=== PATIENT | female | born 1995 | race American Indian/Alaskan Native ===

== ENCOUNTER 2017-10-20 00:05 | Emergency (ER) | payer MEDICAID, OTHER ==
[2017-10-20 00:15] VITALS: PULSE 84; RESP 20
--- NOTE | 2017-10-20 00:52 | C.PDOC ---
History Of Present Illness 22 yo female come in for evaluation of nausea for past week. Pt sts, "today, felt worse, almost vomited. developed some headache, back pain. Otherwise, pt denies change in appetite, recent illness, fever, chills, sore throat, cough, CP , SOB, dyspnea, wheezing, vomiting, diarrhea, UTi sx. LNMP -2. Ambulate to ED for evaluation, not in any apparent distress. Time Seen by Provider: 10/20/17 00:42 Chief Complaint (Nursing): Abdominal Pain History Per: Patient Past Medical History Reviewed: Historical Data, Nursing Documentation, Vital Signs Vital Signs: Last Vital Signs Temp 98 F 10/20/17 00:11 Pulse 84 10/20/17 00:11 Resp 20 10/20/17 00:11 BP 103/47 L 10/20/17 00:11 Pulse Ox 100 10/20/17 00:53 - Medical History PMH: No Chronic Diseases Surgical History: No Surg Hx Family History: States: No Known Family Hx - Social History Hx Alcohol Use: No Hx Substance Use: No - Immunization History Hx Tetanus Toxoid Vaccination: No Hx Pneumococcal Vaccination: No Review Of Systems Except As Marked, All Systems Reviewed And Found Negative. Constitutional: Positive for: Chills. Negative for: Fever ENT: Negative for: Ear Discharge, Nose Discharge, Nose Congestion, Throat Pain, Throat Swelling Cardiovascular: Negative for: Chest Pain Respiratory: Negative for: Cough, Shortness of Breath, Wheezing Gastrointestinal: Positive for: Nausea, Abdominal Pain. Negative for: Vomiting , Diarrhea, Melena, Hematochezia, Hematemesis Genitourinary: Negative for: Dysuria, Frequency Musculoskeletal: Positive for: Back Pain. Negative for: Neck Pain Skin: Negative for: Rash Neurological: Positive for: Headache. Negative for: Weakness, Numbness, Altered Mental Status, Dizziness Physical Exam - Physical Exam Appears: Well, Non-toxic, No Acute Distress Skin: Normal Color, Warm, Dry, No Rash Head: Normacephalic Eye(s): bilateral: PERRL Nose: No Flaring, No Discharge Oral Mucosa: Moist, No Drooling Throat: No Erythema Neck: Trachea Midline, Supple Cardiovascular: Rhythm Regular Respiratory: No Decreased Breath Sounds, No Accessory Muscle Use, No Stridor, No Wheezing Gastrointestinal/Abdominal: Soft, Tenderness (mild epigastric), No Distention, No Guarding, No Rebound Back: No CVA Tenderness Extremity: Normal ROM, No Deformity, No Swelling Neurological/Psych: Oriented x3, Normal Speech ED Course And Treatment - Laboratory Results Result Diagrams: 10/20/17 01:32 18 01:32 Urine POC: Negative O2 Sat by Pulse Oximetry: 100 Pulse Ox Interpretation: Normal - CT Scan/US CT abd/pelvis Other Rad Studies (CT/US): Radiology Report Reviewed CT/US Interpretation: Pt ois allergic to shelfis. Study dry, no contrast. EXAM : CT Abdomen and Pelvis Without Intravenous Contrast. CLINICAL HISTORY: 22 years old, female; Pain; Abdominal pain; Additional info: Llq pain. TECHNIQUE: Axial computed tomography images of the abdomen and pelvis without intravenous contrast. All CT. scans at this facility use one or more dose reduction techniques, viz.: automated exposure control;. ma/kV adjustment per patient size (including targeted exams where dose is matched to indication; i.e. head); or iterative reconstruction technique. Coronal and sagittal reformatted images were created and reviewed. COMPARISON: No relevant prior studies available. FINDINGS: Lower thorax: No acute findings. ABDOMEN: Liver : Unremarkable. Gallbladder and bile ducts: No calcified stones. No ductal dilation. Pancreas: Unremarkable. No ductal dilation. Spleen: No splenomegaly. Adrenals: No mass. Kidneys and ureters: No renal calculi. No hydronephrosis. Stomach and bowel: Apparent mild mural thickening vs underdistention of distal rectum. No. obstruction. Appendix: Normal caliber. No definite inflammation. PELVIS: Bladder: Unremarkable. No stones. Reproductive: Suboptimal delineation of uterus and adnexa. ABDOMEN and PELVIS: Intraperitoneal space: Small free fluid within pelvis. No free air. Bones/ joints: No acute fracture. Soft tissues: Unremarkable. Vasculature: Unremarkable. No aneurysm. Lymph nodes: No pathologically enlarged lymph nodes. IMPRESSION: 1. Small pelvic ascites with suboptimal delineation of uterus/adnexa. Suggest ultrasound. 2. Possible mild proctitis versus underdistention. Clinical correlation is needed. 3. Incidental/non-acute findings are described above. Thank you for allowing us to participate in the care of your patient Progress Note: Pt was OBS in Ed for 3 hours and remained stable. On re-eval, pt is afberile, hemodynamicaly stable. Non-toxic. Tolerate PO well in ED. PulseEOx 100% RA. ENT: no acute findings. neck: SUpple, (-) meningeal sign, (- ) JVD. Lungs: CTA B/L, BS equal B/L. CVS: (+)S1S2, reg. Abd: benign, (-) guarding, (-) rebound. back: (-) CVA tenderness. Blood owrk review, low HB noted. Pt admits, has hx of anemia. Otherwise, diagnostics appeafs without acute findings. UA- normal study. Imaging review and discussed with pt, recommend on outpt bases, F/U outpt with [facility] for Pelvic US, ottherwise, no acute findings noted. Pt has cliunical findings c/w nausea, epigastric pain, low Hb, hx of anemia. Pt advised. ref. to F/u with PMD, GI, Hematlogy and [facility] in 2-3 days for re-eavl. return to ED if any worsening or new changes. Disposition Counseled Patient/Family Regarding: Studies Performed, Diagnosis, Need For Followup, Rx Given - Disposition Referrals: [facility] at [facility] [Outside] Disposition: HOME/ ROUTINE Disposition Time: 03:42 Condition: STABLE Additional Instructions: ENCOURAGE FLUIDS DIET RESTRICTION FOR 1 WEEK, AVOID FAT, GREASY FOOD ENCOURAGE FLUIDS TAKE MEDICATION PRESCRIBED FOLLOW UP WITH PMD, [facility] IN 1-2 DAYS FOR RE-EVALUATION. RETURN TO ED IF ANY WORSENING OR NEW CHANGES. Prescriptions: Ondansetron ODT [Zofran ODT] 1 odt PO BID PRN #6 odt PRN Reason: Nausea/Vomiting Pantoprazole Sodium [Protonix] 20 mg PO BID #20 tablet. Instructions: Anemia Caused by Low Iron, Nausea and Vomiting, Adult, Dyspepsia (DC) Forms: [employer] (Turkish) - Clinical Impression Clinical Impression: Nausea, Epigastric pain, Anemia
[2017-10-20 00:56] LABS: HCG,QUALITATIVE URINE NEGATIVE (NEGATIVE); SQUAMOUS EPITHIAL 8 /hpf (0-5); URINE BACTERIA RARE (<OCC); URINE BILIRUBIN NEGATIVE (NEGATIVE); URINE BLOOD NEGATIVE (NEGATIVE); URINE CLARITY Hazy (Clear); URINE COLOR Yellow (YELLOW); URINE GLUCOSE (UA) NORMAL (Normal); URINE NITRATE NEGATIVE (NEGATIVE); URINE PROTEIN NEGATIVE (NEGATIVE)
[2017-10-20 00:57] LABS: URINE LEUKOCYTE ESTERASE NEGATIVE Leu/uL (Negative)
[2017-10-20] MEDS ORDERED: Sodium Chloride 0.9% 1,000 ML IV ONE (01:20)
[2017-10-20] MEDS ORDERED: Sodium Chloride 0.9% 1,000 ML ONE (01:27)
[2017-10-20 01:35] LABS: BASO % 0.5 % (0.0-2.0); EOS # 0.1 K/uL (0.0-0.7); EOS % 0.6 % (0.0-4.0); HEMOGLOBIN 9.1 g/dL (11.0-16.0); LYMPH # 2.4 K/uL (1.0-4.3); LYMPH % 29.2 % (20.0-40.0); MEAN CELL VOLUME 77.7 fL (81.0-99.0); MEAN CORPUSCULAR HEMOGLOBIN 25.5 pg (27.0-31.0); MEAN CORPUSCULAR HGB CONC 32.8 g/dL (33.0-37.0); MEAN PLATELET VOLUME 7.8 fL (7.2-11.7); MONO # 0.7 K/uL (0.0-0.8); NEUT % 60.7 % (50.0-75.0); RBC 3.59 Mil/uL (3.80-5.20); RED CELL DISTRIBUTION WIDTH 16.7 % (11.5-14.5); WHITE BLOOD COUNT 8.2 K/uL (4.8-10.8)
[2017-10-20 01:51] LABS: ALB/GLOB RATIO 1.2 (1.0-2.1); ALBUMIN 3.9 g/dL (3.5-5.0); ALT/SGPT 22 U/L (9-52); AST/SGOT 19 U/L (14-36); BLOOD UREA NITROGEN 12 mg/dL (7-17); CALCIUM 8.9 mg/dl (8.6-10.4); GFR AFRICAN-AMERICAN > 60; GFR NON-AFRICAN AMERICAN > 60; LIPASE 133 U/L (23-300)
--- NOTE | 2017-10-20 03:22 | CT ---
EXAM: CT Abdomen and Pelvis Without Intravenous Contrast CLINICAL HISTORY: 22 years old, female; Pain; Abdominal pain; Additional info: Llq pain TECHNIQUE: Axial computed tomography images of the abdomen and pelvis without intravenous contrast. All CT scans at this facility use one or more dose reduction techniques, viz.: automated exposure control; ma/kV adjustment per patient size (including targeted exams where dose is matched to indication; i.e. head); or iterative reconstruction technique. Coronal and sagittal reformatted images were created and reviewed. COMPARISON: No relevant prior studies available. FINDINGS: Lower thorax: No acute findings. ABDOMEN: Liver: Unremarkable. Gallbladder and bile ducts: No calcified stones. No ductal dilation. Pancreas: Unremarkable. No ductal dilation. Spleen: No splenomegaly. Adrenals: No mass. Kidneys and ureters: No renal calculi. No hydronephrosis. Stomach and bowel: Apparent mild mural thickening vs underdistention of distal rectum. No obstruction. Appendix: Normal caliber. No definite inflammation. PELVIS: Bladder: Unremarkable. No stones. Reproductive: Suboptimal delineation of uterus and adnexa. ABDOMEN and PELVIS: Intraperitoneal space: Small free fluid within pelvis. No free air. Bones/joints: No acute fracture. Soft tissues: Unremarkable. Vasculature: Unremarkable. No aneurysm. Lymph nodes: No pathologically enlarged lymph nodes. IMPRESSION: 1. Small pelvic ascites with suboptimal delineation of uterus/adnexa. Suggest ultrasound. 2. Possible mild proctitis versus underdistention. Clinical correlation is needed. 3. Incidental/non-acute findings are described above.
[2017-10-20 04:42] VITALS: BP 132/70; TEMP 97.1; O2SAT 98
== END 2017-10-20 04:41 | disposition home or self-care (01) ==
LOC: C.ER 00:05
DX: R10.13 Epigastric pain (principal); R11.0 Nausea; D64.9 Anemia, unspecified
CPT/HCPCS: 74176; 80053; 81001; 83690; 84703; 85025; 96361; 96374; 99285; J1885; J7040

== ENCOUNTER 2017-10-24 13:07 | Emergency (ER) | payer MEDICAID ==
[2017-10-24] MEDS ORDERED: Sodium Chloride 0.9% 1,000 ML IV ONE (13:47)
--- NOTE | 2017-10-24 13:50 | C.PDOC ---
History Of Present Illness 22 yo female w/PMHx of anemia come in for evaluation of fever, bodyaches, malaise, decrease appetite, sore throat, headache gradually developed for past few days. Pt admits, was seen here 4 days ago due to abd. pain. Otherwise, pt denies lethargy, severe headache, drooling, dysphagia, dyspnea, CP, SOB, wheezing, cough, abd. pain, diarrhea, back pain, UTI sx. Ambulate to ED for evaluation, appears in pain. HPI: Influenza Time Seen by Provider: 10/24/17 13:35 Chief Complaint: Flu-like Symptoms History Per: Patient Past Medical History Reviewed: Historical Data, Nursing Documentation, Vital Signs Vital Signs: Last Vital Signs Temp 102 F H 10/24/17 13:30 Pulse 114 H 10/24/17 13:30 Resp 20 10/24/17 13:30 BP 94/60 L 10/24/17 13:30 Pulse Ox 98 10/24/17 13:30 - Medical History PMH: Anemia Family History: States: No Known Family Hx - Social History Hx Alcohol Use: No Hx Substance Use: No - Immunization History Hx Tetanus Toxoid Vaccination: No Hx Pneumococcal Vaccination: No Review Of Systems Except As Marked, All Systems Reviewed And Found Negative. Constitutional: Positive for: Fever, Chills, Malaise Eyes: Negative for: Vision Change ENT: Positive for: Nose Discharge, Nose Congestion, Throat Pain, Throat Swelling. Negative for: Ear Discharge Cardiovascular: Negative for: Chest Pain Respiratory: Negative for: Cough, Shortness of Breath, Wheezing Gastrointestinal: Positive for: Nausea. Negative for: Vomiting, Abdominal Pain , Diarrhea Genitourinary: Negative for: Dysuria Musculoskeletal: Negative for: Neck Pain Skin: Negative for: Rash Neurological: Positive for: Headache. Negative for: Altered Mental Status, Dizziness Physical Exam - Physical Exam Appears: Well, No Acute Distress Skin: Normal Color, Warm, Dry, No Rash Head: Normacephalic Eye(s): bilateral: PERRL Ear(s): Bilateral: Normal Nose: No Flaring, No Discharge Oral Mucosa: Moist, No Drooling Throat: Erythema (mod), Exudate (Left tonsilar), No Drooling Neck: Trachea Midline, Supple, Other ((-) meningeal sign) Cardiovascular: Rhythm Regular, No Murmur, No JVD Respiratory: No Decreased Breath Sounds, No Accessory Muscle Use, No Stridor, No Wheezing Gastrointestinal/Abdominal: Soft, No Tenderness, No Distention, No Guarding Back: No CVA Tenderness Extremity: Normal ROM, No Deformity, No Swelling Neurological/Psych: Oriented x3, Normal Speech - Laboratory Results Result Diagrams: 10/24/17 14:17 10/24/17 14:17 Urine POC: Negative - ECG O2 Sat by Pulse Oximetry: 98 Pulse Ox Interpretation: Normal - Other Rad CXR X-Ray: Read By Radiologist X-Ray Interpretation: no acute findings - Progress ED Course And Treament: Pt was OBS in ED for 2.5 hours and reports moderate improvement in sx. Pt sts, " Im hungry now, want something to eat". On re-eval, pt fever improved, hemodynamicaly stable. NOn-toxic. Tolerate Po well in ED. PuslEOx n98% RA neck: SUpple, (-) meningeal sign. ENT: exam c/w acute pharyngitis. Uvula midline, no edema. Lungs: CTA B/L, BS equal B/L. ABd: benign, (-) guarding, (-) rebound. Back: (-) CVA tenderness. Neurologicaly intact. Blood work review, appears similar to previous visit from 10/20/17, no new acute changes. CXR- normal study. results review and discussed with pt. Pt has clinical findings c/w acute pharyngitis r/o Influenza-like illness. Pt advised. ref. to f/u with PMD in 2-3 days for re-eval. Return to ED if any worsening or new changes. Disposition Counseled Patient/Family Regarding: Studies Performed, Diagnosis, Need For Followup, Rx Given - Disposition Referrals: [facility] [Outside] Disposition: HOME/ ROUTINE Disposition Time: 15:46 Condition: STABLE Additional Instructions: Encourage fluids Take medication as prescribed Bedrest for 2 days Follow up with PMD in 2-3 days for re-evaluation. Return to ED if any worsening or new changes. Prescriptions: Amoxicillin/Clavulanate [Augmentin 875 MG-125 MG] 1 tab PO BID #14 tab Ibuprofen [Motrin Tab] 400 mg PO Q6 #14 tab Oseltamivir Phosphate [Tamiflu] 75 mg PO BID #10 capsule Instructions: Flu, Adult (DC), Sore Throat, Adult (DC) Forms: [employer] (Swazi) - Clinical Impression Clinical Impression: Influenza-like illness, Pharyngitis
[2017-10-24 14:20] LABS: BASO % 0.2 % (0.0-2.0); HEMOGLOBIN 9.8 g/dL (11.0-16.0); LYMPH # 0.6 K/uL (1.0-4.3); LYMPH % 5.2 % (20.0-40.0); MEAN CELL VOLUME 77.9 fL (81.0-99.0); MEAN CORPUSCULAR HEMOGLOBIN 25.1 pg (27.0-31.0); MEAN CORPUSCULAR HGB CONC 32.3 g/dL (33.0-37.0); MEAN PLATELET VOLUME 7.1 fL (7.2-11.7); MONO # 1.1 K/uL (0.0-0.8); MONO % 9.4 % (0.0-10.0); NEUT % 85.2 % (50.0-75.0); PLATELET COUNT 280 K/uL (130-400); RBC 3.89 Mil/uL (3.80-5.20); RED CELL DISTRIBUTION WIDTH 16.8 % (11.5-14.5); WHITE BLOOD COUNT 11.7 K/uL (4.8-10.8)
[2017-10-24] MEDS ORDERED: Sodium Chloride 0.9% 1,000 ML ONE (14:24)
--- NOTE | 2017-10-24 14:30 | RAD ---
HISTORY: Shortness of breath. COMPARISON: No prior. TECHNIQUE: Chest PA and lateral FINDINGS: LUNGS: No active pulmonary disease. PLEURA: No significant pleural effusion identified. No pneumothorax apparent. CARDIOVASCULAR: Normal. OSSEOUS STRUCTURES: No significant abnormalities. VISUALIZED UPPER ABDOMEN: Normal. OTHER FINDINGS: None. IMPRESSION: No active disease.
[2017-10-24 14:34] LABS: BLOOD UREA NITROGEN 12 mg/dL (7-17); CALCIUM 9.1 mg/dl (8.6-10.4); GFR AFRICAN-AMERICAN > 60; GFR NON-AFRICAN AMERICAN > 60
[2017-10-24 14:44] LABS: HCG,QUALITATIVE URINE NEGATIVE (NEGATIVE)
[2017-10-24 14:54] LABS: SQUAMOUS EPITHIAL 10 /hpf (0-5); URINE BACTERIA RARE (<OCC); URINE BILIRUBIN NEGATIVE (NEGATIVE); URINE BLOOD NEGATIVE (NEGATIVE); URINE CLARITY Hazy (Clear); URINE COLOR Yellow (YELLOW); URINE GLUCOSE (UA) NORMAL (Normal); URINE LEUKOCYTE ESTERASE 2+ Leu/uL (Negative); URINE NITRATE NEGATIVE (NEGATIVE); URINE PROTEIN NEGATIVE (NEGATIVE)
[2017-10-24 15:12] VITALS: BP 92/56; PULSE 71; RESP 18; TEMP 99.8
[2017-10-24 15:17] LABS: ANISOCYTOSIS SLIGHT; HYPOCHROMIC SLIGHT; LYMPHOCYTE 5 % (20-40); MICROCYTOSIS SLIGHT; MONOCYTE 11 % (0-10); NEUTROPHIL 84 % (50-75); PLATELET ESTIMATE NORMAL (NORMAL); POIKILOCYTOSIS SLIGHT; TOTAL CELLS COUNTED 100
[2017-10-24 15:18] LABS: TARGET CELLS SLIGHT
[2017-10-24 15:36] VITALS: O2SAT 98
[2017-10-24] MEDS ORDERED: Amoxicillin-Clav 875-125 mg Tab PO STA (15:46)
[2017-10-24] MEDS ORDERED: Amoxicillin-Clav 875-125 mg Tab PO ONE (16:06)
== END 2017-10-24 16:40 | disposition home or self-care (01) ==
LOC: C.ER 13:07
DX: J11.1 Influenza due to unidentified influenza virus with other respiratory manifestations (principal)
CPT/HCPCS: 71046; 80048; 81001; 84703; 85025; 87040; 87086; 87804; 96361; 96374; 96375; 99284; J1885; J2405; J7040

== ENCOUNTER 2018-06-17 17:09 | Emergency (ER) | payer SELFPAY ==
[2018-06-17 17:20] VITALS: BP 103/58; PULSE 77; RESP 20; TEMP 98.9; O2SAT 100
--- NOTE | 2018-06-17 17:46 | C.PDOC ---
History Of Present Illness 22 year old female presents to the ED complaining of headache for one week. Associated symptoms include lightheadedness, throat pain, left ear discomfort and nausea. Denies vomiting, coughing, nasal congestion. Reports she took Tylenol and Motrin with minimal relief. LN . Time Seen by Provider: 06/17/18 17:38 Chief Complaint (Nursing): Headache History Per: Patient History/Exam Limitations: no limitations Onset/Duration Of Symptoms: Days Current Symptoms Are (Timing): Still Present Quality: "Pain" Associated Symptoms: Nausea Past Medical History Reviewed: Historical Data, Nursing Documentation, Vital Signs Vital Signs: Last Vital Signs Temp 98.9 F 06/17/18 17:17 Pulse 77 06/17/18 17:17 Resp 20 06/17/18 17:17 BP 103/58 L 06/17/18 17:17 Pulse Ox 100 06/17/18 17:17 - Medical History PMH: Anemia Surgical History: No Surg Hx Family History: States: No Known Family Hx - Social History Hx Alcohol Use: No Hx Substance Use: No - Immunization History Hx Tetanus Toxoid Vaccination: No Hx Pneumococcal Vaccination: No Review Of Systems Constitutional: Negative for: Fever, Chills ENT: Positive for: Throat Pain. Negative for: Nose Congestion Cardiovascular: Positive for: Light Headedness Respiratory: Negative for: Cough Gastrointestinal: Positive for: Nausea. Negative for: Vomiting Neurological: Positive for: Headache Physical Exam - Physical Exam Appears: Non-toxic Skin: Warm, Dry Head: Atraumatic, Normacephalic, Other (bilateral maxillary sinuses tenderness) Eye(s): bilateral: Normal Inspection, EOMI Ear(s): Bilateral: Normal Nose: Normal Oral Mucosa: Moist Tongue: Normal Appearing Gingiva: Normal Appearing Throat: Erythema (mild ) Neck: Supple Chest: Symmetrical Cardiovascular: Rhythm Regular Respiratory: Normal Breath Sounds, No Rales, No Rhonchi, No Wheezing Extremity: Bilateral: Atraumatic, Normal Color And Temperature, Normal ROM Neurological/Psych: Oriented x3, Normal Speech Gait: Steady ED Course And Treatment - Laboratory Results Urine POC: Negative O2 Sat by Pulse Oximetry: 100 (RA) Pulse Ox Interpretation: Normal Medical Decision Making Medical Decision Making: Plan: Amoxicillin 500mg PO Patient remained afebrile alert and oriented with stable vital signs during ER evaluation. No nuchal rigidity or neuro deficits on exam. Patient treated clinically for sinus infection. Recommend decongestant and antihistamine to help with symptoms. Patient feels comfortable going home and will be discharged. Patient given follow up instructions. Instructed to return to ER if symptoms worsen or new symptoms arise. Disposition Counseled Patient/Family Regarding: Diagnosis, Need For Followup, Rx Given - Disposition Referrals: [facility] [Outside] [facility] [Outside] [facility] [Outside] Disposition: HOME/ ROUTINE Disposition Time: 18:15 Condition: GOOD Additional Instructions: Take Tylenol or Ibuprofen for headache or fever. Take decongestant or antihistamine such as Sudafed, Mucinex, Mae or Claritin to help with sinus pressure. Try nasal spray such as flonase if having congestion. Follow up with your doctor Prescriptions: Amoxicillin 875 mg PO BID #14 tablet Instructions: Sinusitis, Adult (DC) Forms: [employer] 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 - Scribe Statement The provider has reviewed the documentation as recorded by the Scribe Svetlana Cabrera All medical record entries made by the Mario were at my direction and personally dictated by me. I have reviewed the chart and agree that the record accurately reflects my personal performance of the history, physical exam, medical decision making, and the department course for this patient. I have also personally directed, reviewed, and agree with the discharge instructions and disposition.
== END 2018-06-17 18:15 | disposition home or self-care (01) ==
LOC: C.ER 17:09
DX: J32.9 Chronic sinusitis, unspecified (principal)